=== PATIENT | female | born 1935 | race Caucasian/White ===

== ENCOUNTER 2020-11-06 21:02 | Emergency (ER) | payer MEDICARE ==
[~2020-11-06] VITALS: Ht 152.4 cm; Wt 59.0 kg
[2020-11-06] MEDS ORDERED: SODIUM CHLORIDE 0.9% 1000ML 1,000 ML ONE (22:44)
[2020-11-06] MEDS ORDERED: ONDANSETRON HCL INJ 2MG/ML 2ML 2 MG/ML VIAL ONE (22:44)
[2020-11-07] MEDS ORDERED: ONDANSETRON ODT4 MG PO (00:29)
== END 2020-11-07 01:00 | disposition home or self-care (01) ==
LOC: FSED 22:00
DX: R11.2 Nausea with vomiting, unspecified (principal); R73.9 Hyperglycemia, unspecified; I10 Essential (primary) hypertension; E11.9 Type 2 diabetes mellitus without complications; I25.10 Atherosclerotic heart disease of native coronary artery without angina pectoris; Z95.1 Presence of aortocoronary bypass graft; Z98.61 Coronary angioplasty status; Z87.891 Personal history of nicotine dependence; Z88.0 Allergy status to penicillin
CPT/HCPCS: 71045; 74176; 80053; 82553; 84484; 85025; 99284; J2405; J7030